=== PATIENT | female | born 1995 | race Caucasian/White ===

== ENCOUNTER → 2018-06-13 | Outpatient (CLI) | payer OTHER ==
[2018-06-13 12:35] LABS: BASOPHILS ABSOLUTE AUTO 0.06 K/mm3 (0.00-0.23); BASOPHILS PERCENT AUTO 1 % (0-2); EOSINOPHILS PERCENT AUTO 1 % (0-6); Hematocrit 41.7 % (33.0-51.0); Hemoglobin 13.2 g/dL (11.5-16.0); IMMATURE GRAN ABSOLUTE AUTO 0.03 K/mm3 (0.00-0.10); IMMATURE GRAN PERCENT AUTO 0 % (0-1); LYMPHOCYTES ABSOLUTE AUTO 3.15 K/mm3 (0.84-5.20); LYMPHOCYTES PERCENT AUTO 33 % (21-46); MONOCYTES ABSOLUTE AUTO 0.66 K/mm3 (0.16-1.47); MONOCYTES PERCENT AUTO 7 % (4-13); Mean Corpuscular HGB 29.3 pg (26.0-34.0); Mean Corpuscular HGB Conc 31.7 g/dL (31.5-36.5); Mean Corpuscular Volume 93 fL (80-100); Mean Platelet Volume 11.6 fL (9.1-12.4); NEUTROPHILS ABSOLUTE AUTO 5.65 K/mm3 (1.96-9.15); NEUTROPHILS PERCENT AUTO 59 % (41-73); Platelet Count 349 K/mm3 (150-400); RDW Coefficient Variation 12.5 % (11.7-14.2); RDW Standard Deviation 42.8 fL (35.1-46.3); Red Blood Cell Count 4.51 M/mm3 (3.80-5.20); White Blood Cell Count 9.65 K/mm3 (4.00-11.30)
[2018-06-13 13:07] LABS: Alanine Aminotransfer (ALT/SGP 60 U/L (12-78); Albumin, Blood 3.7 g/dL (3.4-5.0); Albumin/Globulin Ratio 0.8 (0.8-1.8); Alk Phos 50 U/L (50-136); Anion Gap 6 mmol/L (6-16); Aspartate Aminotrans (AST/SGOT 21 U/L (12-37); Bilirubin, Total 0.3 mg/dL (0.1-1.0); Blood Urea Nitrogen 11 mg/dL (8-24); Bun/Creatinine Ratio 12.8 (12.0-20.0); CHOL/HDL RATIO 2.7; CO2, Blood 26 mmol/L (21-32); Calcium, Blood 8.8 mg/dL (8.5-10.1); Chloride, Blood 106 mmol/L (98-108); Cholesterol 128 mg/dL (50-200); Creatinine, Blood 0.86 mg/dL (0.40-1.00); Globulin, Blood 4.4 g/dL (2.2-4.0); Glomerular Filtration Rate >60 (60-); Glucose, Blood 109 mg/dL (70-99); HDL Cholesterol 48 mg/dL (>39); LDL/HDL RATIO 1.4; Low Density Lipoprotein Chol 66 mg/dL (0-110); Potassium, Blood 4.4 mmol/L (3.5-5.5); Sodium, Blood 138 mmol/L (136-145); Total Protein, Blood 8.1 g/dL (6.4-8.2); Triglycerides 72 mg/dL (30-140); Very Low Density Lipoprot Chol 14 mg/dL (6-28)
== END ==
LOC: LAB SHORT 12:17
PROVIDERS: Family Medicine
DX: I10 Essential (primary) hypertension (principal); R73.03 Prediabetes
CPT/HCPCS: 80053; 80061; 83036; 84443; 85025

== ENCOUNTER → 2018-10-22 | Outpatient (CLI) | payer OTHER ==
[2018-10-22 16:02] LABS: Source, Urine Clean Catch
[2018-10-22 18:20] LABS: Bilirubin, Urine Neg (Neg); Blood, Urine 1+ (Neg); Glucose Qualitative, Urine Neg (Neg); Ketones, Urine Neg (Neg); Leukocyte Esterase, Urine Neg (Neg); Nitrite, Urine Neg (Neg); Protein, Urine Neg (Neg); Urobilinogen, Urine NORM (Normal)
[2018-10-22 18:42] LABS: Appearance, Urine Clear (Clear); Color, Urine Yellow (P-Yellow)
[2018-10-22 18:43] LABS: Red Blood Cells, Urine 0-2 /hpf (0-2); Squamous Epithelial Cells Few /hpf (Few)
[2018-10-22 18:44] LABS: Bacteria Mod /hpf
== END | disposition home or self-care (01) ==
LOC: LAB 15:49 → LAB SHORT 15:49
PROVIDERS: Obstetrics & Gynecology
DX: R30.0 Dysuria (principal); R32 Unspecified urinary incontinence
CPT/HCPCS: 81001; 87086

== ENCOUNTER → 2019-08-22 | Outpatient (CLI) | payer OTHER ==
[2019-08-22 18:01] LABS: BASOPHILS ABSOLUTE AUTO 0.05 K/mm3 (0.00-0.23); BASOPHILS PERCENT AUTO 1 % (0-2); EOSINOPHILS ABSOLUTE AUTO 0.06 K/mm3 (0.00-0.68); EOSINOPHILS PERCENT AUTO 1 % (0-6); Hematocrit 42.6 % (33.0-51.0); Hemoglobin 13.5 g/dL (11.5-16.0); IMMATURE GRAN ABSOLUTE AUTO 0.01 K/mm3 (0.00-0.10); IMMATURE GRAN PERCENT AUTO 0 % (0-1); LYMPHOCYTES ABSOLUTE AUTO 2.63 K/mm3 (0.84-5.20); LYMPHOCYTES PERCENT AUTO 41 % (21-46); MONOCYTES ABSOLUTE AUTO 0.45 K/mm3 (0.16-1.47); MONOCYTES PERCENT AUTO 7 % (4-13); Mean Corpuscular HGB 29.3 pg (26.0-34.0); Mean Corpuscular HGB Conc 31.7 g/dL (31.5-36.5); Mean Corpuscular Volume 93 fL (80-100); NEUTROPHILS ABSOLUTE AUTO 3.24 K/mm3 (1.96-9.15); NEUTROPHILS PERCENT AUTO 50 % (41-73); Platelet Count 257 K/mm3 (150-400); RDW Coefficient Variation 12.9 % (11.7-14.2); RDW Standard Deviation 43.7 fL (35.1-46.3); White Blood Cell Count 6.44 K/mm3 (4.00-11.30)
[2019-08-22 18:33] LABS: Anion Gap 7 mmol/L (6-16); Blood Urea Nitrogen 15 mg/dL (8-24); Bun/Creatinine Ratio 15.5 (12.0-20.0); CO2, Blood 25 mmol/L (21-32); Calcium, Blood 9.2 mg/dL (8.5-10.1); Chloride, Blood 106 mmol/L (98-108); Creatinine, Blood 0.97 mg/dL (0.40-1.00); Glomerular Filtration Rate >60 (60-); Glucose, Blood 101 mg/dL (70-99); Potassium, Blood 4.1 mmol/L (3.5-5.5); Sodium, Blood 138 mmol/L (136-145)
== END ==
LOC: LAB 10:06 → LAB SHORT 10:06
PROVIDERS: Family Medicine
DX: I10 Essential (primary) hypertension (principal)
CPT/HCPCS: 80048; 85025

== ENCOUNTER → 2020-01-20 | Outpatient (CLI) | payer OTHER | END | disposition home or self-care (01) | LOC: LAB 10:00 → LAB SHORT 10:00 | PROVIDERS: Obstetrics & Gynecology | DX: Z01.419 Encounter for gynecological examination (general) (routine) without abnormal findings (principal) | CPT/HCPCS: G0123 ==

== ENCOUNTER 2021-06-20 09:31 | Day surgery (SDC) | payer OTHER ==
[~2021-06-20] VITALS: Ht 165.1 cm; Wt 142.0 kg
[~2021-06-20 09:31] MED LIST: ESCI10 PO; IBUP600 PO; MIRENA1 EAC1 VAG
--- NOTE | 2021-06-20 10:30 | NUR ---
Ambulatory in Day Surgery History, Chart, Medications and Allergies reviewed before start of procedure.Lungs clear T/O to Auscultation. Patient confirms NPO status and agrees with scheduled surgery.
--- NOTE | 2021-06-20 13:23 | NUR ---
PT ALERT AND ORIENTED, REQUESTING PO FOOD AND FLUIDS. ALSO REQUESTING TO GET UP AND USE RESTROOM. PT IS ABLE TO REPOSITION SELF IN BED AND SIT UP. GETS UP TO SIDE OF BED AND REQUESTS WHEELCHAIR TO BATHROOM. PT URINATED WITHOUT PAIN, BUT REPORTED A "LITTLE BIT OF BURNING". PT BACK TO BED, TOLERATING PO FLUIDS.
--- NOTE | 2021-06-20 13:31 | NUR ---
PT WAS TOLERATING PO FLUIDS AND FOOD AND BEGAN TO FEEL NAUSEOUS. PHENERGAN ADMINISTERED AND PT BEGAN PO SOLIDS (CRACKERS) AGAIN, STATING SHE WAS STARTING TO FEEL BETTER.
--- NOTE | 2021-06-20 14:04 | NUR ---
PT REPORTS NAUSEA BEING RELIEVED AND REQUESTING TO GO HOME. Patient up to Ambulate independently. Gait steady. Discharge instructions reviewed with patient. Patient verbalizes understanding. Copy given to patient to take home. Patient States Post-Procedure ride home has been arranged. Discharged via wheelchair to private car for ride home. ALL BELONGINGS THAT PATIENT BROUGHT WITH THEM HAVE BEEN RETURNED TO PATIENT, TO INCLUDE A BLUE LEATHER BACKPACK WITH PERSONAL BELONGINGS INSIDE.
--- NOTE | 2021-06-21 15:30 | NUR ---
06/21/21 1530 Niurka Lynn VERIFICATIONS: EDIT CHART.
== END 2021-06-20 23:27 | disposition home or self-care (01) ==
LOC: ORSCMMR 09:31 → ORD 12:30 → ORSCMMR 12:30
PROVIDERS: Obstetrics & Gynecology
PROC: 0UPD8HZ Removal of Contraceptive Device from Uterus and Cervix, Via Natural or Artificial Opening Endoscopic (ICD-10-PCS; principal; 2021-06-20 12:30)
DX: Z30.432 Encounter for removal of intrauterine contraceptive device (principal); T83.32XA Displacement of intrauterine contraceptive device, initial encounter; J45.909 Unspecified asthma, uncomplicated; E28.2 Polycystic ovarian syndrome; F41.8 Other specified anxiety disorders; E66.01 Morbid (severe) obesity due to excess calories; Z68.43 Body mass index [BMI] 50.0-59.9, adult; Z79.899 Other long term (current) drug therapy
CPT/HCPCS: J1100; J1885; J2250; J2405; J2550; J2704; J3010; J7120

== ENCOUNTER → 2024-05-06 | Outpatient (CLI) | payer OTHER ==
[2024-05-06 16:28] LABS: BASOPHILS ABSOLUTE AUTO 0.08 K/mm3 (0.00-0.23); BASOPHILS PERCENT AUTO 1 % (0-2); EOSINOPHILS ABSOLUTE AUTO 0.07 K/mm3 (0.00-0.68); EOSINOPHILS PERCENT AUTO 1 % (0-6); Hematocrit 28.7 % (33.0-51.0); Hemoglobin 7.9 g/dL (11.5-16.0); IMMATURE GRAN ABSOLUTE AUTO 0.06 K/mm3 (0.00-0.10); IMMATURE GRAN PERCENT AUTO 0 % (0-1); LYMPHOCYTES ABSOLUTE AUTO 3.76 K/mm3 (0.84-5.20); LYMPHOCYTES PERCENT AUTO 27 % (21-46); MONOCYTES ABSOLUTE AUTO 0.75 K/mm3 (0.16-1.47); MONOCYTES PERCENT AUTO 5 % (4-13); Mean Corpuscular HGB Conc 27.5 g/dL (31.5-36.5); Mean Corpuscular Volume 69 fL (80-100); Mean Platelet Volume 11.1 fL (9.1-12.4); NEUTROPHILS ABSOLUTE AUTO 9.39 K/mm3 (1.96-9.15); NEUTROPHILS PERCENT AUTO 67 % (41-73); Platelet Count 451 K/mm3 (150-400); RDW Coefficient Variation 17.5 % (11.7-14.2); RDW Standard Deviation 42.9 fL (35.1-46.3); RETICULOCYTE ABSOLUTE 0.1102 M/mm3 (0.0200-0.1100); RETICULOCYTE COUNT PERCENT 2.65 % (0.50-2.50); Red Blood Cell Count 4.16 M/mm3 (3.80-5.20); White Blood Cell Count 14.11 K/mm3 (4.00-11.30)
[2024-05-07 23:54] LABS: FRUCTOSAMINE 233 umol/L (205-285)
== END ==
LOC: LAB SHORT 15:06 → LAB 15:06
PROVIDERS: Family Medicine
DX: D50.8 Other iron deficiency anemias (principal); D64.9 Anemia, unspecified; R73.03 Prediabetes
CPT/HCPCS: 82607; 82728; 82746; 82985; 83540; 83550; 85025; 85045

== ENCOUNTER → 2024-07-15 | Outpatient (CLI) | payer OTHER ==
[2024-07-15 21:21] LABS: Percent Saturation 7.7 % (15.0-50.0)
== END ==
LOC: LAB SHORT 17:14 → LAB 17:14
PROVIDERS: Internal Medicine Hematology & Oncology
DX: D50.8 Other iron deficiency anemias (principal)
CPT/HCPCS: 82728; 83540; 83550

== ENCOUNTER → 2024-09-25 | Outpatient (CLI) | payer OTHER ==
[2024-09-25 16:35] LABS: BASOPHILS ABSOLUTE AUTO 0.07 K/mm3 (0.00-0.23); BASOPHILS PERCENT AUTO 1 % (0-2); EOSINOPHILS ABSOLUTE AUTO 0.08 K/mm3 (0.00-0.68); EOSINOPHILS PERCENT AUTO 1 % (0-6); Hematocrit 38.3 % (33.0-51.0); Hemoglobin 11.9 g/dL (11.5-16.0); IMMATURE GRAN ABSOLUTE AUTO 0.02 K/mm3 (0.00-0.10); IMMATURE GRAN PERCENT AUTO 0 % (0-1); LYMPHOCYTES ABSOLUTE AUTO 3.28 K/mm3 (0.84-5.20); LYMPHOCYTES PERCENT AUTO 36 % (21-46); MONOCYTES ABSOLUTE AUTO 0.49 K/mm3 (0.16-1.47); MONOCYTES PERCENT AUTO 5 % (4-13); Mean Corpuscular HGB 24.5 pg (26.0-34.0); Mean Corpuscular HGB Conc 31.1 g/dL (31.5-36.5); Mean Corpuscular Volume 79 fL (80-100); Mean Platelet Volume 11.7 fL (9.1-12.4); NEUTROPHILS ABSOLUTE AUTO 5.15 K/mm3 (1.96-9.15); NEUTROPHILS PERCENT AUTO 57 % (41-73); Platelet Count 360 K/mm3 (150-400); RDW Coefficient Variation 17.7 % (11.7-14.2); RDW Standard Deviation 50.6 fL (35.1-46.3); Red Blood Cell Count 4.85 M/mm3 (3.80-5.20); White Blood Cell Count 9.09 K/mm3 (4.00-11.30)
[2024-09-25 16:54] LABS: Percent Saturation 8.2 % (15.0-50.0)
== END ==
LOC: LAB SHORT 10:48 → LAB 10:48
PROVIDERS: Family Medicine
DX: D50.9 Iron deficiency anemia, unspecified (principal)
CPT/HCPCS: 82728; 83540; 83550; 85025

== ENCOUNTER → 2025-03-25 | Outpatient (CLI) | payer OTHER ==
[2025-03-25 18:55] LABS: BASOPHILS ABSOLUTE AUTO 0.06 K/mm3 (0.00-0.23); BASOPHILS PERCENT AUTO 1 % (0-2); EOSINOPHILS ABSOLUTE AUTO 0.08 K/mm3 (0.00-0.68); EOSINOPHILS PERCENT AUTO 1 % (0-6); Hematocrit 37.6 % (33.0-51.0); Hemoglobin 12.0 g/dL (11.5-16.0); IMMATURE GRAN ABSOLUTE AUTO 0.04 K/mm3 (0.00-0.10); IMMATURE GRAN PERCENT AUTO 0 % (0-1); LYMPHOCYTES ABSOLUTE AUTO 3.21 K/mm3 (0.84-5.20); LYMPHOCYTES PERCENT AUTO 29 % (21-46); MONOCYTES ABSOLUTE AUTO 0.68 K/mm3 (0.16-1.47); MONOCYTES PERCENT AUTO 6 % (4-13); Mean Corpuscular HGB Conc 31.9 g/dL (31.5-36.5); Mean Corpuscular Volume 89 fL (80-100); NEUTROPHILS ABSOLUTE AUTO 6.97 K/mm3 (1.96-9.15); NEUTROPHILS PERCENT AUTO 63 % (41-73); NRBC ABSOLUTE 0.00 K/mm3 (0.00-0.02); NRBC Auto 0.0 /100 WBC (0.0-0.2); Platelet Count 295 K/mm3 (150-400); RDW Coefficient Variation 14.3 % (11.7-14.2); RDW Standard Deviation 45.7 fL (35.1-46.3)
[2025-03-25 19:33] LABS: Alanine Aminotransfer (ALT/SGP 37 U/L (12-78); Albumin, Blood 3.5 g/dL (3.4-5.0); Albumin/Globulin Ratio 0.8 (0.8-1.8); Anion Gap 9 mmol/L (3-11); Aspartate Aminotrans (AST/SGOT 15 U/L (12-37); Bilirubin, Total 0.3 mg/dL (0.1-1.0); Blood Urea Nitrogen 10 mg/dL (8-24); CHOL/HDL RATIO 2.3; CO2, Blood 26 mmol/L (21-32); Calcium, Blood 8.6 mg/dL (8.5-10.1); Chloride, Blood 106 mmol/L (98-108); Cholesterol 147 mg/dL (50-200); Creatinine, Blood 0.76 mg/dL (0.40-1.00); Ferritin, Serum 7 ng/mL (8-252); Globulin, Blood 4.2 g/dL (2.2-4.0); Glucose, Blood 99 mg/dL (70-99); HDL Cholesterol 65 mg/dL (>39); LDL/HDL RATIO 1.1; Low Density Lipoprotein Chol 69 mg/dL (0-110); Potassium, Blood 4.1 mmol/L (3.5-5.5); Sodium, Blood 137 mmol/L (136-145); Thyroid Stimulating Hormone 3.120 uIU/mL (0.360-4.800); Total Iron Binding Capacity 348 ug/dL (250-450); Total Protein, Blood 7.7 g/dL (6.4-8.2); Triglycerides 67 mg/dL (30-140); Very Low Density Lipoprot Chol 13 mg/dL (6-28)
[2025-03-27 16:44] LABS: HIV 1,2 COMBO ANTIGEN/ANTIBODY Negative (Negative)
== END ==
LOC: LAB 15:45 → LAB SHORT 15:45
PROVIDERS: Family Medicine
DX: Z11.4 Encounter for screening for human immunodeficiency virus [HIV] (principal); D50.9 Iron deficiency anemia, unspecified; Z79.899 Other long term (current) drug therapy
CPT/HCPCS: 80053; 80061; 82306; 82728; 83540; 83550; 84443; 85025; 87389